=== PATIENT | female | born 1955 | race Caucasian/White ===

== ENCOUNTER 2019-04-07 11:01 | Emergency (ER) | payer BC ==
[~2019-04-07] VITALS: Ht 165.1 cm; Wt 73.5 kg
--- OUTSIDE RECORDS SUMMARY | 2019-04-07 11:03 | XMS REPORT | Continuity of Care Document ---
Author Author [facility] Organization [employer] Address Unknown Phone Unavailable Care Team Providers Care Napkin Band Wrapper Name Role Phone [employer] Information Super Vitamin D Unavailable Unavailable Problems Problem Status Onset Date Classification Date Reported Comments Source UNK Active 09/22/2015 [facility] R79.89 - OTHER SPECIFIED ABNORMAL FINDI Active 09/21/2015 [facility] DIZZINESS Active 07/09/2013 [facility] Esophageal reflux Resolved Problem 04/01/2019 [facility], [facility] [place] HLD (Confirmed) Resolved Problem 04/01/2019 [facility], [facility] [place] Hypertension Resolved Problem 04/01/2019 [facility], [facility] [place] Hypothyroidism Resolved Problem 04/01/2019 [facility], [facility] [place] Osteoporosis Resolved Problem 04/01/2019 [facility], [facility] [place] Hypertension Resolved Problem 07/11/2013 [facility] Hypothyroidism Resolved Problem 07/11/2013 [facility] LT KNEE Active [facility] Medications Medication Details Route Status Patient Instructions Ordering Provider Order Date Source Sodium Chloride 0.154 MEQ/ML Injectable Solution 1,000 mL, Rate: 25 ml/hr, Infuse over: 40 hr, Route: IV, Dosing Weight 80.455 kg, Total Volume: 1,000, Start date: 10/05/15 12:16:00, Duration: 30 day, Stop date: 11/04/15 12:15:00 Inactive 10/05/2015 [facility] Vitamin D3 0 Refill(s) Active 10/04/2015 [facility] PARoxetine 20 mg oral tablet 20 mg=1 tab, PO, Daily, # 30 tab, 0 Refill(s) Active 10/04/2015 [facility] naproxen 375 mg oral tablet 375 mg=1 tab, PO, BID, # 60 tab, 0 Refill(s) Active 10/04/2015 [facility] Aspirin 0 Refill(s) Active 10/04/2015 [facility] gabapentin 100 MG Oral Capsule 200 mg=2 cap, PO, Q6H, # 240 cap, 0 Refill(s) Active 10/04/2015 [facility] Famotidine 20 MG Oral Tablet 20 mg=1 tab, PO, BID, # 6 tab, 0 Refill(s) Active 10/04/2015 [facility] calcium-vitamin D 150 mg-100 units oral tablet 1 tab, PO, BID, # 100 tab, 0 Refill(s) Active 10/04/2015 [facility] Valium 5 mg oral tablet 5 mg, 1 tab, PO, Q8H, PRN, may take 1/2 tablet, 15 tab, Anxiety, Substitution Allowed, TABmay take 1/2 tablet PO Active Gino Moreno 07/09/2013 [facility] Antivert 50 mg oral tablet 50 mg, 1 tab, PO, Q6H, PRN, 24 tab, Dizziness, Substitution Allowed, TAB PO Active [facility] 07/09/2013 [facility] Antivert 50 mg, Route: PO, Drug form: TAB, ONCE, Dosing Weight 68.182, kg, Priority: STAT, Start date: 07/09/13 11:29:00, Stop date: 07/09/13 11:29:00 PO No Longer Active [facility] 07/09/2013 [facility] Valium 5 mg, Route: PO, ONCE, Dosing Weight 68.182, kg, Priority: STAT, Start date: 07/09/13 11:29:00, Stop date: 07/09/13 11:29:00 PO No Longer Active [facility] 07/09/2013 [facility] levothyroxine Substitution Allowed Active 07/09/2013 [facility] atenolol Substitution Allowed Active 07/09/2013 [facility] Allergies, Adverse Reactions, Alerts Substance Category Reaction Severity Reaction type Status Date Reported Comments Source No Known Medication Allergies Assertion Drug allergy [facility] Immunizations No Data Provided for This Section Results Order Name Results Value Reference Range Date Interpretation Comments Source CHEMISTRY Total CK 66 12 - 191 07/09/2013 Normal [facility] CHEMISTRY Troponin-I 0.04 0.00 - 0.40 07/09/2013 Normal [facility] CHEMISTRY A/G Ratio 1.0 0.7 - 1.6 07/09/2013 Normal [facility] CHEMISTRY B/C Ratio 16 6 - 25 07/09/2013 Normal [facility] CHEMISTRY Globulin 3.4 2.0 - 4.0 07/09/2013 Normal [facility] CHEMISTRY AGAP 13.3 10.0 - 20.0 07/09/2013 Normal [facility] CHEMISTRY eGFR 87 07/09/2013 NA <sup>1</sup>Result Comment: The eGFR is calculated using the CKD-EPI formula. In most young, healthy individuals the eGFR will be >90 mL/min/1.73m2. The eGFR declines with age. An eGFR of 60-89 may be normal in some populations, particularly the elderly, for whom the CKD-EPI formula has not been extensively validated. Use of the eGFR is not recommended in the following populations:& lt;br/>
Individuals with unstable creatinine concentrations, including patients and those with serious co-morbid conditions.

Patients with extremes in muscle mass or diet.

The data above are obtained from the National Kidney Disease Education Program (NKDEP) which additionally recommends that when the eGFR is used in patients with extremes of body mass index for purposes of drug dosing, the eGFR should be multiplied by the estimated BMI. [facility] CHEMISTRY CO2 27 24 - 32 07/09/2013 Normal [facility] CHEMISTRY Calcium Lvl 8.4 8.5 - 10.5 07/09/2013 LOW [facility] CHEMISTRY Total Protein 6.8 6.4 - 8.4 07/09/2013 Normal [facility] CHEMISTRY AST 24 0 - 37 07/09/2013 Normal [facility] CHEMISTRY Chloride Lvl 107 95 - 109 07/09/2013 Normal [facility] CHEMISTRY BUN 13 7 - 22 07/09/2013 Normal [facility] CHEMISTRY Bili Total 0.3 0.2 - 1.3 07/09/2013 Normal [facility] CHEMISTRY Potassium Lvl 4.3 3.5 - 5.1 07/09/2013 Normal [facility] CHEMISTRY Creatinine Lvl 0.8 0.5 - 1.4 07/09/2013 Normal [facility] CHEMISTRY Sodium Lvl 143 135 - 145 07/09/2013 Normal [facility] CHEMISTRY Glucose Lvl 95 70 - 99 07/09/2013 Normal <sup>2</sup>Interpretive Data: Adult reference range values reflect the clinical guidelines
of the [place] [employer]. [facility] CHEMISTRY Albumin Lvl 3.4 3.5 - 5.0 07/09/2013 LOW [facility] CHEMISTRY Alk Phos 125 39 - 136 07/09/2013 Normal [facility] CHEMISTRY ALT 50 0 - 65 07/09/2013 Normal [facility] HEMATOLOGY WBC 6.1 3.7 - 10.4 07/09/2013 Normal [facility] HEMATOLOGY Hct 40.9 36.0 - 48.0 07/09/2013 Normal [facility] HEMATOLOGY RBC 4.39 4.20 - 5.40 07/09/2013 Normal [facility] HEMATOLOGY Hgb 13.3 12.0 - 16.0 07/09/2013 Normal [facility] HEMATOLOGY MPV 10.0 7.4 - 10.4 07/09/2013 Normal [facility] HEMATOLOGY MCH 30.3 27.0 - 31.0 07/09/2013 Normal [facility] HEMATOLOGY Platelet 176 133 - 450 07/09/2013 Normal [facility] HEMATOLOGY MCHC 32.5 32.0 - 36.0 07/09/2013 Normal [facility] HEMATOLOGY MCV 93.3 81.0 - 99.0 07/09/2013 Normal [facility] HEMATOLOGY RDW 12.1 11.5 - 14.5 07/09/2013 Normal [facility] HEMATOLOGY Eosinophils # 0.1 0.0 - 0.5 07/09/2013 Normal [facility] HEMATOLOGY Monocytes # 0.5 0.0 - 0.8 07/09/2013 Normal [facility] HEMATOLOGY Lymphocytes # 2.4 1.0 - 5.5 07/09/2013 Normal [facility] HEMATOLOGY Basophils 0.6 0.0 - 1.0 07/09/2013 Normal [facility] HEMATOLOGY Segs-Bands # 3.1 1.5 - 8.1 07/09/2013 Normal [facility] HEMATOLOGY Eosinophils 1.9 0.0 - 4.0 07/09/2013 Normal [facility] HEMATOLOGY Segs 50.1 45.0 - 75.0 07/09/2013 Normal [facility] HEMATOLOGY Monocytes 8.1 2.0 - 12.0 07/09/2013 Normal [facility] HEMATOLOGY Lymphocytes 39.3 20.0 - 40.0 07/09/2013 Normal [facility] Pathology Reports No Data Provided for This Section Diagnostic Reports Report Value Date Source Breast Limited Uni US LIMITED ULTRASOUND OF LEFT BREAST: 03/30/2019 CLINICAL: /R92.8 Other Abnormal And Inconclusive Findings On Diagnostic Imaging Of Breast. COMPARISON:Comparison is made to exams dated: 03/30/2019 mammogram, 03/16/2019 mammogram - [facility], 10/09/2016 mammogram, 06/30/2015 mammogram, 05/12/2014 mammogram, and 03/20/2013 mammogram. TECHNIQUE: Color flow and real-time ultrasound of the left breast were performed on the areas of interest. FINDINGS: No abnormalities were seen sonographically in the left breast. Normal tissue without suspicious findings is seen in the area of mammographic asymmetry. IMPRESSION: BENIGN RECOMMENDATION:Normal tissue is seen in the area of mammographic asymmetry. There is no sonographic evidence of malignancy. A 1 year screening mammogram is recommended.(03/30/2020) This exam was interpreted at [id number] for GLEN Maria, SL 15. Professional services are provided by the [facility] Diagnostic Imaging. Lv Menjivar M.D., cm/penrad:03/30/2019 12:40:16 Chuck Splitter(s): Sweta Atwood [facility] letter sent: BI-RADS 1/2 Ultrasound BI-RADS: 2 [facility] ILIA incl CAD MA BILATERAL DIGITAL DIAGNOSTIC MAMMOGRAM WITH CAD: 03/30/2019 CLINICAL: R92.8 Other Abnormal And Inconclusive Findings On Diagnostic Imaging Of Breast/R92.8 Other Abnormal And Inconclusive Findings On Diagnostic Imaging Of Breast. Current study was evaluated with a Computer Aided Detection (CAD) system. COMPARISON:Comparison is made to exams dated: 03/16/2019 mammogram - [facility], 10/09/2016 mammogram, 06/30/2015 mammogram, 05/12/2014 mammogram, 03/20/2013 mammogram, and 11/19/2011 mammogram. TECHNIQUE: Mammographic views were obtained using digital acquisition. Current study was also evaluated with a Computer Aided Detection (CAD) system. FINDINGS: There are scattered fibroglandular densities in both breasts. There is a focal asymmetry with a single round calcification in the right breast at 11 o'clock middle depth 9.5 cm from the nipple. This finding becomes less prominent on additional images and may represent overlapping tissue. There is a 5 mm oval equal density mass with a circumscribed margin in the left breast at 11 o'clock middle depth 5 cm from the nipple. This finding becomes less prominent on additional images and may represent overlapping tissue. IMPRESSION: INCOMPLETE: NEEDS ADDITIONAL IMAGING EVALUATION RECOMMENDATION:The focal asymmetry in the right breast at 11 o'clock middle depth is benign. The asymmetry in the left breast at 11 o'clock middle depth is indeterminate. An ultrasound is recommended. Professional services are provided by the [facility]. Lv Menjivar M.D. cm/:03/30/2019 12:38:34 Chuck Splitter(s): Sylwia Lopez, RT(R)(M), [facility] Mammogram BI-RADS: 0 Indeterminate 03/30/2019 JULIANN Maria Knee complete 4+ views DX Exam: Left knee x-ray, 4+ views Reason for Exam: Left knee pain Comparison Exam: none Discussion: No fractures or dislocations are seen of the left knee. The joint spaces are preserved. No intraosseous lesions. No radiopaque foreign bodies. Impression: 1. No acute bony abnormalities seen within the left knee. 03/16/2019 JULIANN Maria Breast Mammo Scrn ILIA incl CAD MA BILATERAL DIGITAL SCREENING MAMMOGRAM WITH CAD: 03/16/2019 CLINICAL: Z12.31 Encounter For Screening Mammogram For Malignant Neoplasm Of Breast/Z12.31 Encounter For Screening Mammogram For Malignant Neoplasm Of Breast. Current study was evaluated with a Computer Aided Detection (CAD) system. COMPARISON:Comparison is made to exams dated: 10/09/2016 mammogram, 06/30/2015 mammogram, 05/12/2014 mammogram, 03/20/2013 mammogram, and 11/19/2011 mammogram. TECHNIQUE: Mammographic views were obtained using digital acquisition. Current study was also evaluated with a Computer Aided Detection (CAD) system. FINDINGS: There are scattered fibroglandular densities in both breasts. There are benign calcifications in the right breast. There is a focal asymmetry with calcifications in the right breast at 11 o'clock middle depth 9.5 cm from the nipple. There is a 5 mm oval equal density mass with a circumscribed margin in the left breast at 11 o'clock middle depth 5 cm from the nipple. No other significant masses or calcifications are seen in either breast. IMPRESSION: INCOMPLETE: NEEDS ADDITIONAL IMAGING EVALUATION RECOMMENDATION:The focal asymmetry in the right breast at 11 o'clock middle depth is indeterminate. Magnification views as well as a possible ultrasound are recommended. The 5 mm oval equal density mass in the left breast at 11 o'clock middle depth is indeterminate. Diagnostic mammography with possible ultrasound are recommended. This exam was interpreted at [id number] for Ciera, SL 15. Professional services are provided by the [facility]. Lv Menjivar M.D., cm/astrid:03/20/2019 11:10:11 Chuck Splitter(s): Sylwia Lopez, RT(R)(M), [facility] letter sent: BI-RADS 0 Mammogram BI-RADS: 0 Indeterminate 03/16/2019 [facility] Bone Density DXA [employer] MA BONE DENSITY ASSESSMENT: 03/16/2019 CLINICAL DATA: Post menopausal. M85.851 Other Specified Disorders Of Bone Density And Structure, Right Thigh/M85.851 Other Specified Disorders Of Bone Density And Structure, Right Thigh RISK FACTORS: race. FINDINGS: Bone density evaluation was performed 03/16/2019 on the right femur neck using a Hologic unit. The BMD average for the exam is 0.613 g/cm2. The T-score is -2.10 and the Z-score is -0.70. This matches the World Health Organization's criteria for osteopenia and places the patient at a medium risk for fracture. An additional bone density evaluation was performed 03/16/2019 on the left femur neck using a Hologic unit. The BMD average for the exam is 0.579 g/cm2. The T- score is -2.40 and the Z-score is -1.00. This matches the World Health Organization's criteria for osteopenia and places the patient at a medium risk for fracture. An additional bone density evaluation was performed 03/16/2019 on the right hip using a Hologic unit. The BMD average for the exam is 0.742 g/cm2. The T-score is -1.60 and the Z-score is -0.50. This matches the World Health Organization's criteria for osteopenia and places the patient at a medium risk for fracture. An additional bone density evaluation was performed 03/16/2019 on the left hip using a Hologic unit. The BMD average for the exam is 0.740 g/cm2. The T-score is -1.70 and the Z-score is -0.50. This matches the World Health Organization's criteria for osteopenia and places the patient at a medium risk for fracture. An additional bone density evaluation was performed 03/16/2019 on the AP L1-L3 region of spine using a Hologic unit. The BMD average for the exam is 0.925 g/cm2. The T-score is -0.80 and the Z-score is 0.80. This matches the World Health Organization's criteria for normal bone density and places the patient within normal limits of fracture risk. FRAX 10 year probability of major osteoporotic fracture is 11% and hip fracture is 1.8%. IMPRESSION: OSTEOPENIA Patient is at medium risk for fracture. This exam was interpreted at [id number] for Candace, 15. Lv Menjivar M.D. cm/penrad:03/16/2019 12:56:38 Chuck Splitter(s): Rashida JC(Pernell)(Lynda), [facility] 03/16/2019 JULIANN Maria Abdomen complete US EXAM: US ABDOMEN DATE: 10/03/2015 COMPARISON EXAMS: None. CLINICAL INDICATION: Nausea. Elevated liver function tests.. DATA: None TECHNIQUE: Multiple transverse and longitudinal images through the abdomen were obtained sonographically with additional supplemental color flow imaging. Permanent images were recorded. DISCUSSION: Liver is normal in size with the right lobe of the liver measuring 13.2 cm in length. Liver displays increased echogenicity a mild degree. No focal hepatic pathology is seen. Liver echogenicity is slightly coarsened as well. No intra or extrahepatic biliary ductal dilatation is seen with the common bile duct measuring 4 mm in maximal diameter along its visualized course. The gallbladder is sonographically within normal limits with no wall thickening, pericholecystic fluid, gallstones, or sonographic Fernandes's sign. The spleen is normal in appearance measuring 9.2 cm in length. Both kidneys are of normal size and echogenicity with no hydronephrosis, masses, or calculi with the right kidney measuring 10.2 cm in length and with the left kidney measuring 11.0 cm in length. No abnormalities of the visualized portions of the abdominal aorta or inferior vena cava are demonstrated. Hepatopetal flow is seen in the main portal vein which measures 11 mm in diameter. Portions the pancreatic head and tail are obscured by overlying bowel gas. No abnormalities of the visualized portions of the pancreas are seen. No ascites or pleural effusions are visualized. IMPRESSION: Increased liver echogenicity with coarsening of the liver echotexture, nonspecific findings most compatible diffuse fatty infiltration (steatosis). Other nonspecific hepatocellular disease is not excluded. 10/03/2015 [facility] Name: LANA LORA : 1955 SEX: F Ordering Physician: Gomez [facility] Chest 1view : Jul 09, 2013 11:10:00 AM. CLINICAL INDICATION: Dizziness Comparison Examination: None FINDINGS: Portable AP chest radiograph was performed. HEART: The cardiomediastinal contours are normal on this AP view. LUNGS: Normal lung volumes are noted. There are no infiltrates or effusions. No masses are seen BONES: There are no clinically significant osseous abnormalities noted. IMPRESSION: No acute cardiopulmonary abnormality. SL: 23 07/09/2013 [facility] Consultation Notes No Data Provided for This Section Discharge Summaries No Data Provided for This Section History and Physicals No Data Provided for This Section Vital Signs Vital Sign Value Date Comments Source Systolic (mm Hg) 122 10/05/2015 [facility] Diastolic (mm Hg) 68 10/05/2015 [facility] Respitory Rate 15 10/05/2015 [facility] Respitory Rate 12 10/05/2015 [facility] Systolic (mm Hg) 122 10/05/2015 [facility] Diastolic (mm Hg) 66 10/05/2015 [facility] Heart Rate 65 10/05/2015 [facility] Respitory Rate 12 10/05/2015 [facility] Systolic (mm Hg) 109 10/05/2015 [facility] Diastolic (mm Hg) 58 10/05/2015 [facility] Heart Rate 61 10/05/2015 [facility] Weight 80.455 10/04/2015 [facility] BMI Calculated 29.52 10/04/2015 [facility] Height 165.1 cm 10/04/2015 [facility] Respitory Rate 18 07/09/2013 [facility] Systolic (mm Hg) 154 07/09/2013 [facility] Temperature Oral (F) 98.5 F 07/09/2013 [facility] Heart Rate 60 07/09/2013 [facility] Diastolic (mm Hg) 71 07/09/2013 [facility] Height 162.56 cm 07/09/2013 [facility] Weight 68.182 07/09/2013 [facility] Systolic (mm Hg) 164 07/09/2013 [facility] Heart Rate 82 07/09/2013 [facility] Diastolic (mm Hg) 94 07/09/2013 [facility] Respitory Rate 16 07/09/2013 [facility] Temperature Oral (F) 98.2 F 07/09/2013 [facility] Encounters Location Location Details Encounter Type Encounter Number Reason For Visit Attending Provider ADM Date DC Date Status Source Not Sent Emergency [id number] NIKKI MORENO 07/09/2013 07/09/2013 Active [facility] [place] [facility] [id number] Jayme Coughlin 10/03/2015 10/04/2015 [facility] [id number] Jayme Coughlin 10/05/2015 10/05/2015 [facility] [id number] Bettina Jose Luis 03/16/2019 03/17/2019 [facility] [facility] [id number] Bettina Goodine 03/30/2019 03/31/2019 [facility] Procedures Procedure Code Date Perfomer Comments Source Hysterectomy [id number] [facility] Parathyroid operation [id number] [facility] [id number] [facility] [id number] [facility] [place] Hysterectomy [id number] [facility] Parathyroid operation [id number] [facility] Assessment and Plan No Data Provided for This Section Plan of Care No Data Provided for This Section Social History Social History Date Source Social History TypeResponse Alcohol Past Smoking Status Never smoker; Exposure to Tobacco Smoke None; Cigarette Smoking Last 365 Days No; Reg Smoking Cessation Counseling No entered on: 10/04/15 10/05/2015 [facility] Social History TypeResponse Alcohol Past Smoking Status Never smoker; Exposure to Tobacco Smoke None; Cigarette Smoking Last 365 Days No; Reg Smoking Cessation Counseling No [facility] [place] Social History TypeResponse Alcohol Past Smoking Status Never smoker; Exposure to Tobacco Smoke None; Cigarette Smoking Last 365 Days No; Reg Smoking Cessation Counseling No 10/05/2015 [facility] Family History No Data Provided for This Section Advance Directives No Data Provided for This Section Functional Status No Data Provided for This Section
--- OUTSIDE RECORDS SUMMARY | 2019-04-07 11:04 | XMS REPORT | Summary of Care ---
Author Author [facility] [place] Organization [facility] [place] Address Unknown Phone Unavailable Encounter HQ Kira_vivienne(FIN) [id number] Date(s): 03/30/19 - 03/30/19 [facility] [place] [address] [place] [address]- [phone] Discharge Disposition: Home or Self Care Attending Physician: Bettina Amaya MD Referring Physician: Bettina Amaya MD Vital Signs No data available for this section Problem List Condition Effective Dates Status Health Status Informant Esophageal Resolved reflux(Confirmed) HLD Resolved (hyperlipidemia)(Con firmed) Hypertension(Confirm Resolved ed) Hypothyroidism(Confi Resolved rmed) Osteoporosis(Confirm Resolved ed) Allergies, Adverse Reactions, Alerts No Known Medication Allergies Medications No data available for this section Results No data available for this section Immunizations No data available for this section Procedures Procedure Date Related Diagnosis Body Site Status Hysterectomy Completed Parathyroid operation Completed Social History Social History Type Response Alcohol Past Smoking Status Never smoker; Exposure to Tobacco Smoke None; Cigarette Smoking Last 365 Days No; Reg Smoking Cessation Counseling No entered on: 10/04/15 Assessment and Plan No data available for this section
--- OUTSIDE RECORDS SUMMARY | 2019-04-07 11:04 | XMS REPORT | Summary of Care ---
Author Author [facility] Outpatient Imaging [facility] Outpatient Imaging [facility] Address Unknown Phone Unavailable Encounter HQ Encntr_vivienne(FIN) [id number] Date(s): 10/03/15 - 10/03/15 [facility] Outpatient Imaging [facility] [address] [facility], [address] [place], [place] [id number] [place] [address] [phone] Discharge Disposition: Home Attending Physician: Jayme Coughlin MD Vital Signs No data available for this section Problem List Condition Effective Dates Status Health Status Informant Esophageal Resolved reflux(Confirmed) HLD Resolved (hyperlipidemia)(Con firmed) Hypertension(Confirm Resolved ed) Hypothyroidism(Confi Resolved rmed) Osteoporosis(Confirm Resolved ed) Allergies, Adverse Reactions, Alerts Substance Reaction Severity Status NKDA Active Medications No data available for this section Results No data available for this section Immunizations No data available for this section Procedures Procedure Date Related Diagnosis Body Site Hysterectomy Parathyroid operation Social History Social History Type Response Alcohol Past Smoking Status Never smoker; Exposure to Tobacco Smoke None; Cigarette Smoking Last 365 Days No; Reg Smoking Cessation Counseling No Assessment and Plan No data available for this section
--- OUTSIDE RECORDS SUMMARY | 2019-04-07 11:04 | XMS REPORT | Summary of Care ---
Author Author [facility] Organization [facility] Address Unknown Phone Unavailable Encounter PAUL Daniel(ODESSA) [id number] Date(s): 10/05/15 - 10/05/15 [facility] [address] [place] [address]- Discharge Disposition: Home Attending Physician: Jayme Coughlin MD Referring Physician: Jayme Coughlin MD Vital Signs 1 2 3 Most recent to oldest [Reference Range]: 165.1 cm (10/04/15 3:12 PM) Height 122/68 mmHg (10/05/15 2:01 PM) 122/66 mmHg (10/05/15 1:46 PM) 109/58 mmHg (10/05/15 1:31 PM) Blood Pressure [90-140/60-90 mmHg] 15 BRMIN (10/05/15 2:01 PM) 12 BRMIN *LOW* (10/05/15 1:46 PM) 12 BRMIN *LOW* (10/05/15 1:31 PM) Respiratory Rate [14-20 BRMIN] 65 bpm (10/05/15 1:31 PM) 61 bpm (10/05/15 12:10 PM) Peripheral Pulse Rate [60-100 bpm] 80.455 kg (10/04/15 3:12 PM) Weight 29.52 m2 (10/04/15 3:12 PM) Body Mass Index Problem List Condition Effective Dates Status Health Status Informant Esophageal Resolved reflux(Confirmed) HLD Resolved (hyperlipidemia)(Con firmed) Hypertension(Confirm Resolved ed) Hypothyroidism(Confi Resolved rmed) Osteoporosis(Confirm Resolved ed) Allergies, Adverse Reactions, Alerts Substance Reaction Severity Status NKDA Active Medications aspirin 0 Refill(s) Start Date: 10/04/15 Status: Ordered calcium-vitamin D 150 mg-100 units oral tablet 1 tab, PO, BID, # 100 tab, 0 Refill(s) Start Date: 10/04/15 Status: Ordered famotidine 20 mg oral tablet 20 mg=1 tab, PO, BID, # 6 tab, 0 Refill(s) Start Date: 10/04/15 Stop Date: 10/07/15 Status: Ordered gabapentin 100 mg oral capsule 200 mg=2 cap, PO, Q6H, # 240 cap, 0 Refill(s) Start Date: 10/04/15 Status: Ordered naproxen 375 mg oral tablet 375 mg=1 tab, PO, BID, # 60 tab, 0 Refill(s) Start Date: 10/04/15 Status: Ordered PARoxetine 20 mg oral tablet 20 mg=1 tab, PO, Daily, # 30 tab, 0 Refill(s) Start Date: 10/04/15 Status: Ordered Sodium Chloride 0.9% IV 1000 mL 1,000 mL, Rate: 25 ml/hr, Infuse over: 40 hr, Route: IV, Dosing Weight 80.455 kg , Total Volume: 1,000, Start date: 10/05/15 12:16:00, Duration: 30 day, Stop javy e: 11/04/15 12:15:00 Start Date: 10/05/15 Stop Date: 10/05/15 Status: Discontinued Vitamin D3 0 Refill(s) Start Date: 10/04/15 Status: Ordered Results No data available for this section [...]
--- OUTSIDE RECORDS SUMMARY | 2019-04-07 11:04 | XMS REPORT | CCD ---
Author Author Auto Generated Organization [facility] Address Unknown Phone Unavailable Care Team Providers Care Rn Ortho Name Role Phone Gomez Urena CP Allergies, Adverse Reactions, Alerts Substance Reaction Status NKDA Active Problem List Condition Effective Dates Status Hypertension Resolved Hypothyroidism Resolved Medications Medication Instructions Start Date End Date Status Valium 5 mg oral 5 mg, 1 tab, PO, Q8H, PRN, may take 07/09/2013 Ordered tablet 1/2 tablet, 15 tab, Anxiety, Substitution Allowed, TAB may take 1/2 tablet Antivert 50 mg oral 50 mg, 1 tab, PO, Q6H, PRN, 24 tab, 07/09/2013 Ordered tablet Dizziness, Substitution Allowed, TAB levothyroxine Substitution Allowed 07/09/2013 Ordered atenolol Substitution Allowed 07/09/2013 Ordered Antivert 50 mg, Route: PO, Drug form: TAB, 07/09/2013 07/09/2013 Completed ONCE, Dosing Weight 68.182, kg, Priority: STAT, Start date: 07/09/13 11:29:00, Stop date: 07/09/13 11:29:00 Valium 5 mg, Route: PO, ONCE, Dosing 07/09/2013 07/09/2013 Completed Weight 68.182, kg, Priority: STAT, Start date: 07/09/13 11:29:00, Stop date: 07/09/13 11:29:00 Vital Signs Most recent to oldest [Reference Range]: 1 2 Height 162.56 cm (07/09/2013 09:56:00) Temperature Oral [96.4-99.1 DegF] 98.5 DegF (07/09/2013 13:27:00) 98.2 DegF (07/09/2013 09:56:00) Systolic Blood Pressure [90-140 mmHg] 154 mmHg *HI* (07/09/2013 13:27:00) 164 mmHg *HI* (07/09/2013 09:56:00) Diastolic Blood Pressure [60-90 mmHg] 71 mmHg (07/09/2013:27:00) 94 mmHg *HI* (07/09/2013:56:00) Respiratory Rate [14-20 BRMIN] 18 BRMIN (07/09/2013:27:00) 16 BRMIN (07/09/2013:56:00) Peripheral Pulse Rate [60-100 bpm] 60 bpm (07/09/2013:27:00) 82 bpm (07/09/2013:56:00) Weight 68.182 kg (07/09/2013:56:00) Results CHEMISTRY Most recent to oldest [Reference Range]: 1 Sodium Lvl [135-145 mEq/L] 143 mEq/L (07/09/2013 10:22:00) Potassium Lvl [3.5-5.1 mEq/L] 4.3 mEq/L (07/09/2013 10:22:00) Chloride Lvl [95-109 mEq/L] 107 mEq/L (07/09/2013 10:22:00) CO2 [24-32 mEq/L] 27 mEq/L (07/09/2013 10:22:00) AGAP [10.0-20.0 mEq/L] 13.3 mEq/L (07/09/2013 10:22:00) Creatinine Lvl [0.5-1.4 mg/dL] 0.8 mg/dL (07/09/2013 10:22:00) eGFR 87 mL/min/1.73m2 1 *NA* (07/09/2013 10:22:00) BUN [7-22 mg/dL] 13 mg/dL (07/09/2013 10:22:00) B/C Ratio [6-25] 16 (07/09/2013 10:22:00) Glucose Lvl [70-99 mg/dL] 95 mg/dL 2 (07/09/2013 10:22:00) Total Protein [6.4-8.4 g/dL] 6.8 g/dL (07/09/2013 10:22:00) Albumin Lvl [3.5-5.0 g/dL] 3.4 g/dL *LOW* (07/09/2013) Globulin [2.0-4.0 g/dL] 3.4 g/dL (07/09/2013) A/G Ratio [0.7-1.6] 1.0 (07/09/2013) Calcium Lvl [8.5-10.5 mg/dL] 8.4 mg/dL *LOW* (07/09/2013) ALT [0-65 unit/L] 50 unit/L (07/09/2013) AST [0-37 unit/L] 24 unit/L (07/09/2013) Alk Phos [39-136 unit/L] 125 unit/L (07/09/2013) Bili Total [0.2-1.3 mg/dL] 0.3 mg/dL (07/09/2013) Total CK [12-191 unit/L] 66 unit/L (07/09/2013) Troponin-I [0.00-0.40 ng/mL] 0.04 ng/mL (07/09/2013) 1Result Comment: The eGFR is calculated using the CKD-EPI formula. In most young, healthy individuals the eGFR will be >90 mL/min/1.73m2. The eGFR declines with age. An eGFR of 60-89 may be normal in some populations, particularly the elderly, for whom the CKD-EPI formula has not been extensively validated. Use of the eGFR is not recommended in the following populations: Individuals with unstable creatinine concentrations, including patients and those with serious co-morbid conditions. Patients with extremes in muscle mass or diet. The data above are obtained from the National Kidney Disease Education Program ( NKDEP) which additionally recommends that when the eGFR is used in patients with extremes of body mass index for purposes of drug dosing, the eGFR should be mul tiplied by the estimated BMI. 2Interpretive Data: Adult reference range values reflect the clinical guidelines of the [place] [employer]. HEMATOLOGY Most recent to oldest [Reference Range]: 1 WBC [3.7-10.4 K/CMM] 6.1 K/CMM (07/09/2013 10:22:00) RBC [4.20-5.40 M/CMM] 4.39 M/CMM (07/09/2013:22:00) Hgb [12.0-16.0 g/dL] 13.3 g/dL (07/09/2013:22:00) Hct [36.0-48.0 %] 40.9 % (07/09/2013::00) MCV [81.0-99.0 fL] 93.3 fL (07/09/2013::00) MCH [27.0-31.0 pg] 30.3 pg (07/09/2013::00) MCHC [32.0-36.0 g/dL] 32.5 g/dL (07/09/2013::00) RDW [11.5-14.5 %] 12.1 % (07/09/2013 10:22:00) Platelet [133-450 K/CMM] 176 K/CMM (07/09/2013::00) MPV [7.4-10.4 fL] 10.0 fL (07/09/2013 10:22:00) Segs [45.0-75.0 %] 50.1 % (07/09/2013::00) Lymphocytes [20.0-40.0 %] 39.3 % (07/09/2013::00) Monocytes [2.0-12.0 %] 8.1 % (07/09/2013::00) Eosinophils [0.0-4.0 %] 1.9 % (07/09/2013:22:00) Basophils [0.0-1.0 %] 0.6 % (07/09/2013 10:22:00) Segs-Bands # [1.5-8.1 K/CMM] 3.1 K/CMM (07/09/2013:22:00) Lymphocytes # [1.0-5.5 K/CMM] 2.4 K/CMM (07/09/2013 10:22:00) Monocytes # [0.0-0.8 K/CMM] 0.5 K/CMM (07/09/2013 10:22:00) Eosinophils # [0.0-0.5 K/CMM] 0.1 K/CMM (07/09/2013 10:22:00)
--- OUTSIDE RECORDS SUMMARY | 2019-04-07 11:04 | XMS REPORT | Summary of Care ---
Author Author [facility] [place] Organization [facility] [place] Address Unknown Phone Unavailable Encounter HQ Kira_vivienne(FIN) [id number] Date(s): 03/16/19 - 03/16/19 [facility] [place] [address] [place] [phone] Discharge Disposition: Home or Self Care Attending [...]
--- NOTE | 2019-04-07 13:25 | Diagnostic Imaging Report ---
Exam: Right finger Series 3 views History: Animal bite Comparison: None Findings: 3 views of the right index finger demonstrate no acute fracture or dislocation. No superficial soft tissue abnormality. No significant degenerative change. Impression: No acute osseous injury. Signed by: Wesly Green MD on 04/07/2019 1:21 PM
[2019-04-07 13:41] VITALS: BP 148/72
== END 2019-04-07 13:44 | disposition home or self-care (01) ==
LOC: FSED 11:01
DX: S61.250A Open bite of right index finger without damage to nail, initial encounter (principal); W55.01XA Bitten by cat, initial encounter; Y92.008 Other place in unspecified non-institutional (private) residence as the place of occurrence of the external cause
CPT/HCPCS: 99283